=== PATIENT | male | born 1945 | race Caucasian/White ===

== ENCOUNTER 2021-05-02 10:19 | Outpatient (CLI) | payer MEDICARE, BC ==
[2021-05-02 21:45] LABS: SARS-CoV-2 PCR by NAA Not Detected (NotDetected)
== END 2021-05-02 10:20 | disposition home or self-care (01) ==
LOC: CSHLAB 10:19
PROVIDERS: ATTEND Family Medicine
DX: Z20.822 Contact with and (suspected) exposure to COVID-19 (principal)
CPT/HCPCS: U0003; U0005

== ENCOUNTER 2021-05-07 08:01 | Outpatient (CLI) | payer MEDICARE, BC | END 2021-05-07 08:02 | disposition home or self-care (01) | LOC: CSHCP 08:01 | PROVIDERS: ATTEND Family Medicine | DX: R05.3 Chronic cough (principal); R94.2 Abnormal results of pulmonary function studies; J45.998 Other asthma | CPT/HCPCS: 94060; 94726; 94729; 94760 ==

== ENCOUNTER 2022-08-17 08:06 | Outpatient (CLI) | payer MEDICARE, BC | END 2022-08-17 08:07 | disposition home or self-care (01) | LOC: CSHMRI 08:06 | PROVIDERS: ATTEND Orthopaedic Surgery | DX: Z98.890 Other specified postprocedural states (principal); M25.511 Pain in right shoulder; M94.8X1 Other specified disorders of cartilage, shoulder; M19.011 Primary osteoarthritis, right shoulder ==